=== PATIENT | female | born 2000 | race Caucasian/White ===

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

== ENCOUNTER 2024-03-28 04:51 | Emergency (ER) | payer OTHER, BC ==
[2024-03-28 05:08] VITALS: BP 118/77; PULSE 108
[2024-03-28] MEDS: Ketorolac 30 MG/ML SDV IM ONE (05:31)
== END 2024-03-28 05:44 | disposition home or self-care (01) ==
LOC: JP.ED 04:51
DX: H66.001 Acute suppurative otitis media without spontaneous rupture of ear drum, right ear (principal); J45.909 Unspecified asthma, uncomplicated; Z91.018 Allergy to other foods
CPT/HCPCS: 96372; 99282; J1885